=== PATIENT | female | born 1980 | race American Indian/Alaskan Native ===

== ENCOUNTER 2017-11-27 21:36 | Emergency (ER) | payer OTHER ==
[~2017-11-27] VITALS: Ht 160 cm; Wt 91.6 kg
[~2017-11-27 21:36] MED LIST: DOXYCYCLINE HY100 MG PO; KEFLEX500 MG PO
[2017-11-27] MEDS ORDERED: PRENATAL VITAM1 EACH PO (22:18)
== END 2017-11-27 23:35 | disposition home or self-care (01) ==
LOC: ED 21:36
DX: O99.513 Diseases of the respiratory system complicating pregnancy, third trimester (principal); J11.1 Influenza due to unidentified influenza virus with other respiratory manifestations; O99.333 Smoking (tobacco) complicating pregnancy, third trimester; F17.200 Nicotine dependence, unspecified, uncomplicated; O24.419 Gestational diabetes mellitus in pregnancy, unspecified control; Z79.899 Other long term (current) drug therapy
CPT/HCPCS: 99282

== ENCOUNTER 2017-12-13 16:07 | Emergency (ER) | payer OTHER ==
[~2017-12-13] VITALS: Ht 160 cm; Wt 91.6 kg
[~2017-12-13 16:07] MED LIST changes: +PRENATAL VITAM1 EACH PO
[2017-12-13] MEDS ORDERED: PREDNISONE20 MG PO (16:37)
[2017-12-13] MEDS ORDERED: VENTOLIN HFA18 GM INH (16:37)
[2017-12-13] MEDS ORDERED: KEFLEX500 MG PO (16:37)
== END 2017-12-13 16:50 | disposition home or self-care (01) ==
LOC: ED 16:07
DX: O99.513 Diseases of the respiratory system complicating pregnancy, third trimester (principal); J45.909 Unspecified asthma, uncomplicated; O99.343 Other mental disorders complicating pregnancy, third trimester; F15.10 Other stimulant abuse, uncomplicated; F17.200 Nicotine dependence, unspecified, uncomplicated; Z79.899 Other long term (current) drug therapy; Z3A.35 35 weeks gestation of pregnancy
CPT/HCPCS: 99283; J7512

== ENCOUNTER 2017-12-17 12:48 | Inpatient (IN) | payer OTHER ==
[~2017-12-17 12:48] MED LIST changes: +PREDNISONE20 MG PO; +VENTOLIN HFA18 GM INH
--- NOTE | 2017-12-17 18:35 | NUR ---
12/17/171834 Helen Burger 1820 PT ARRIVED IN PACU WIDE AWAKE. SPINAL LEVEL AT T-8. 1830 FAMILY IN ROOM.
--- NOTE | 2017-12-18 09:09 | OR ---
[facility] [address], [place] [address] Signed DATE OF OPERATION: 12/17/2017 SURGEON: Zack Macias MD Patient of Dr. Macias. PREOPERATIVE DIAGNOSIS: Previous section. Pre-eclampsia at 36.4 weeks and no care. POSTOPERATIVE DIAGNOSIS: Previous section. Pre-eclampsia at 36.4 weeks and no care. PROCEDURE: Repeat low transverse segment section. Delivery of live male . SURGEON: Zack Macias MD. THERAPY DIRECTOR: Dr. Christiansen. ANESTHESIA: Spinal. ESTIMATED BLOOD LOSS: 1500 mL. COMPLICATIONS: None. DRAINS: Vines to bladder. FINDINGS: Live male , Apgars 8 and 9. Weight 6 pounds 12 ounces. Normal uterus. Normal tubes and ovaries bilateral. There was some omental adhesions to the anterior abdominal wall just to the left of midline. DESCRIPTION OF PROCEDURE: The patient was brought to the operating room, placed in supine position. After Electronically Signed By: ZACK MACIAS MD 12/18/17 0909 PATIENT NAME: WANG BIRD OPERATIVE REPORT DATE OF : 76 PHYSICIAN: ZACK MACIAS MD REPORT #: [id number] REPORT IS CONFIDENTIAL AND NOT TO BE RELEASED WITHOUT AUTHORIZATION [facility] [address] [place] [id number] Signed adequate spinal anesthesia was obtained, she was prepped and draped in usual sterile fashion. Vines catheter was placed in the bladder. A Pfannenstiel skin incision was made with a scalpel through the previous skin incision. Subcutaneous tissue was dissected with the scalpel and Bovie. The fascia was nicked with scalpel and extended in transverse fashion using curved scissors. The underlying abdominal musculature was already partially and this was continued open along the midline. The peritoneum was opened with finger dissection. Two omental adhesions were noted just to the left of midline. These were clamped with Elda clamps, cut with scissors in each pedicle, free tied with 2-0 chromic suture. The omentum was then pushed up all the way above the uterus. The Yimi self-retaining retractor was inserted into the incision and tightened in place. The lower uterine segment was identified. The lower segment was noted to be quite thin even though she had not been in labor, the bladder noted to be well below the area of dissection. The lower uterine segment was carefully nicked with the scalpel and clear fluid came from the incision. The incision was extended in transverse fashion using finger dissection. The was noted to be in a vertex CASA presentation. Infant head was easily delivered from the incision. The rest of the was easily delivered from the incision. The mouth and nose were suctioned with bulb syringe while the cord was doubly clamped and cut. The was passed off to table in good condition awaiting nurse. The placenta was manually removed and the uterine cavity was explored with lap pad to remove any retained membranes. The left angle had two large vessels bleeding somewhat heavily. These were clamped before removal of the placenta. After removal, an angle stitch of #0 Monocryl was placed on the right side of the incision and a running locking stitch of #0 Monocryl starting at the left side was used to close the incision. Before finishing closure, there was still bleeding at the left angle, and so additional stitch was taken at the angle to help control bleeding. After first layer was closed, the angle was identified and after releasing tension, more bleeding was noted, so finger was placed behind the broad ligament to avoid any vessels to help stay away from the ureter and deeper [id number] stitch of #0 Monocryl was placed around the vessel. Once this was tied in place, this seemed to control the bleeding. There was noted to be small hematoma in the broad ligament, but this was very soft and had not changed since the first suture put in. A second running locking stitch of #0 Monocryl was used to imbricate the first layer. The entire pelvis was irrigated, suctioned, and examined noted to have good hemostasis. The small hematoma in the lower broad ligament was identified and not changed in any shape or size and it was not expanding and it is still soft, so it was thought that the bleeding had been controlled. The entire pelvis was suctioned and irrigated and a small superficial bleeding spot along the incision was cauterized with the Bovie. The Yimi self-retaining retractor was removed and the lower segment reexamined. Evicel liquid was placed in both angles and along the incision for further control of any possible bleeding and then sheet of ACell was placed over the lower uterine segment to help with healing. The anterior wall of peritoneum was closed using running stitch of 2-0 Vicryl suture. The abdominal musculature was reapproximated using Electronically Signed By: ZACK MACIAS MD 12/18/17 0909 PATIENT NAME: WANG BIRD OPERATIVE REPORT DATE OF : 76 PHYSICIAN: ZACK MACIAS MD REPORT #: [id number] REPORT IS CONFIDENTIAL AND NOT TO BE RELEASED WITHOUT AUTHORIZATION [place] [id number] Signed interrupted stitches of #0 Vicryl suture. There was one bleeding spot in the musculature, which was controlled with mahygg-vz-[id number] stitch of #0 Vicryl suture. When good hemostasis was obtained, the abdominal wall was irrigated, suctioned, and examined, and any superficial bleeding spots were cauterized with the Bovie. Powdered ACell was sprinkled on the abdominal musculature to help with healing and then the fascia was closed using two running stitches of #0 Vicryl suture meeting in the midline. Subcutaneous tissue was irrigated, suctioned, examined, and any bleeding spots cauterized with the Bovie. The remaining powdered ACell sprinkled on subcutaneous tissue, which was then closed using interrupted stitches of 3-0 Vicryl suture. The skin was reapproximated using skin clips. Estimated blood loss was more than normal, but this was mostly due to the uterine vessels on the side and the slow return of the uterus to iain, which did respond after given Cytotec and Pitocin. The patient tolerated the procedure well and went to recovery room in good condition. Sponge, needle, and instrument counts were correct at the end of the procedure. MD TERRI Rowell/JANKIL /[id number] Electronically Signed By: ZACK MACIAS MD 12/18/17 0909 PATIENT NAME: WANG BIRD OPERATIVE REPORT DATE OF : 76 PHYSICIAN: ZACK MACIAS MD REPORT #: [id number] REPORT IS CONFIDENTIAL AND NOT TO BE RELEASED WITHOUT AUTHORIZATION
--- NOTE | 2017-12-19 13:46 | PR ---
[facility] [address] [facility] [place], [place] [address] Signed PP Progress Notes Datetime Report Generated by CPN: 12/19/2017 13:46 SUBJECTIVE: [id number] Pain: Within normal limits Nausea/Vomiting: Denies Vital Signs: [id number] Vital Signs: Reviewed; Within Normal Limits Notable Details: PP Hgb/Hct = 7.6/23.5 Urine Output 50 ml/hr past 3 hours, appears concentrated EXAM: [id number] Abdomen/Uterus: Normal Lochia: Normal Extremities: Normal Incision: Normal Exam Comments: dressing clean and dry IMPRESSION/PLAN/PROCEDURES: [id number] Impression: Normal progression Plan: Continue present management Procedures: None Progress Notes: Doing well, without complaint, voiding without difficulty Signing Physician: Josiah Peralta MD Copies: *Electronically Signed* 12/19/17 1346 JOSIAH PERALTA MD PATIENT NAME: WANG BIRD PROGRESS NOTE DATE OF : 76 PHYSICIAN: JOSIAH PERALTA MD RPT #: [id number] REPORT IS CONFIDENTIAL AND NOT TO BE RELEASED WITHOUT AUTHORIZATION
--- NOTE | 2017-12-20 09:52 | PR ---
[facility] [address] [facility] [place] [address] Signed PP Progress Notes Datetime Report Generated by CPN: 12/20/2017 09:51 SUBJECTIVE: [id number] Pain: Within normal limits Nausea/Vomiting: Denies Vital Signs: [id number] Vital Signs: Reviewed; Within Normal Limits Notable Details: PP Hgb/Hct = 7.6/23.5 Urine Output 50 ml/hr past 3 hours, appears concentrated EXAM: [id number] Abdomen/Uterus: Normal Lochia: Normal Extremities: Normal Incision: Normal Exam Comments: dressing clean and dry IMPRESSION/PLAN/PROCEDURES: [id number] Impression: Normal progression Plan: Discharge Procedures: None Progress Notes: Doing well, without complaint, ready to leave. Signing Physician: Josiah Peralta MD Copies: *Electronically Signed* 12/20/17 0951 JOSIAH PERALTA MD PATIENT NAME: WANG BIRD PROGRESS NOTE DATE OF : 76 PHYSICIAN: JOSIAH PERALTA MD RPT #: [id number] REPORT IS CONFIDENTIAL AND NOT TO BE RELEASED WITHOUT AUTHORIZATION
== END 2017-12-20 14:11 | disposition home or self-care (01) | DRG 765 ==
LOC: FBCO 12:48 → FBC 16:35
PROVIDERS: ADMIT General Practice
PROC: 10D00Z1 Extraction of Products of Conception, Low, Open Approach (ICD-10-PCS; principal; 2017-12-17 17:03)
DX: O14.94 Unspecified pre-eclampsia, complicating childbirth (principal); D62 Acute posthemorrhagic anemia; O60.14X0 Preterm labor third trimester with preterm delivery third trimester, not applicable or unspecified; O72.0 Third-stage hemorrhage; O90.81 Anemia of the puerperium; O34.211 Maternal care for low transverse scar from previous cesarean delivery; Z3A.36 36 weeks gestation of pregnancy; Z37.0 Single live birth; Z59.0 Homelessness; O99.824 Streptococcus B carrier state complicating childbirth
CPT/HCPCS: 01961; 59025; 80053; 82565; 82570; 82575; 84156; 84450; 84520; 84550; 85025; 85027; 99214; C1763; J0690; J1170; J1644; J2250; J2274; J2370; J2590; J7120

== ENCOUNTER 2018-01-08 09:41 | Emergency (ER) | payer OTHER ==
[~2018-01-08] VITALS: Ht 152.4 cm; Wt 85.7 kg
== END 2018-01-08 12:21 | disposition home or self-care (01) ==
LOC: ED 09:41
DX: O9A.23 Injury, poisoning and certain other consequences of external causes complicating the puerperium (principal); S39.011A Strain of muscle, fascia and tendon of abdomen, initial encounter; O90.81 Anemia of the puerperium; O99.335 Smoking (tobacco) complicating the puerperium; F17.200 Nicotine dependence, unspecified, uncomplicated; X50.9XXA Other and unspecified overexertion or strenuous movements or postures, initial encounter
CPT/HCPCS: 80053; 81001; 83690; 84703; 85025; 99283; J7030

== ENCOUNTER → 2018-01-08 | Emergency (ER) | payer OTHER ==
[~2018-01-08] VITALS: Ht 152.4 cm; Wt 85.7 kg
== END ==
LOC: ED 14:27
DX: O99.89 Other specified diseases and conditions complicating pregnancy, childbirth and the puerperium (principal); R10.11 Right upper quadrant pain; O99.335 Smoking (tobacco) complicating the puerperium; F17.210 Nicotine dependence, cigarettes, uncomplicated; Z79.899 Other long term (current) drug therapy
CPT/HCPCS: 74177; 76705; 85025; 87088; 99284; Q9967

== ENCOUNTER 2022-09-03 00:11 | Emergency (ER) | payer OTHER ==
[~2022-09-03] VITALS: Ht 152.4 cm; Wt 86.3 kg
[2022-09-03] MEDS ORDERED: AMOX TR-K CLV1 EAC1 PO (00:33)
--- NOTE | 2022-09-03 17:24 | EKG ---
[facility] [address] [facility] [place] [address] Signed Normal sinus rhythm T wave abnormality, consider anterior ischemia Abnormal ECG No previous ECGs available Confirmed by Keaton Canas MD () on 09/03/2022 5:24:42 PM Electronically Signed By: KEATON CANAS MD 09/03/22 1724 PATIENT NAME: WANG BIRD Electrocardiogram DATE OF : 76 PHYSICIAN: KEATON CANAS MD REPORT #: [id number] REPORT IS CONFIDENTIAL AND NOT TO BE RELEASED WITHOUT AUTHORIZATION
== END 2022-09-03 02:19 | disposition home or self-care (01) ==
LOC: ED 00:11
DX: F15.10 Other stimulant abuse, uncomplicated (principal); F17.200 Nicotine dependence, unspecified, uncomplicated
CPT/HCPCS: 36415; 80053; 81001; 84443; 84703; 85025; 93005; 93010; 99284-25; G0480